=== PATIENT | male | born 1980 | race Caucasian/White ===

== ENCOUNTER 2016-11-03 17:55 | Emergency (ER) | payer OTHER ==
[~2016-11-03] VITALS: Ht 185.4 cm; Wt 143.7 kg
[~2016-11-03 17:55] MED LIST: CARAFATE1 GM PO; NEXIUM40 MG PO; NOHOMEMEDS; PRILOSEC20 MG PO
[2016-11-03 18:48] LABS: ADD MIUA? NO; BILIRUBIN NEGATIVE; BLOOD NEGATIVE; COLOR YELLOW ((YELLOW)); GLUCOSE (STRIP) NEGATIVE; KETONES 5; LEUKOCYTES NEGATIVE; NITRITE NEGATIVE; PROTEIN (STRIP) NEGATIVE; SPECIFIC GRAVITY 1.025 (1.000-1.030); UCUL ADDED? NO; UROBILINOGEN 0.2 MG/DL (0.2-1.0)
[2016-11-03 19:31] LABS: HEMATOCRIT 45.6 % (38.0-50.0); MCH 30.9 PG (29.0-34.0); MCHC 35.7 G/DL (30.0-36.0); MCV 86.4 FL (86-99); MEAN PLAT.VOLUME 9.6 uM^3 (9.0-12.4); PLATELET COUNT 230 K/uL (156-360); RBC DIS.WIDTH-SD 37.9 % (39-53); RED BLOOD COUNT 5.28 M/uL (4.00-5.50); WHITE BLOOD COUNT 8.5 K/uL (4.1-10.2)
[2016-11-03 19:42] LABS: CHLORIDE 106 mEq/L (99-109); POTASSIUM 3.7 mEq/L (3.7-5.4); SODIUM 139 mEq/L (136-147)
[2016-11-03 19:44] LABS: GLUCOSE 95 mg/dL (70-99)
[2016-11-03 19:46] LABS: ANION GAP 11 MEQ/L (2-14)
[2016-11-03 19:48] LABS: GFR ESTIMATE (CALCULATED) > 59 mL/min/
[2016-11-03 19:49] LABS: UREA NITROGEN (BUN) 16 mg/dL (9-23)
[2016-11-03] MEDS ORDERED: MOTRIN600 MG PO (20:43)
[2016-11-03] MEDS ORDERED: CIPRO500 MG PO (20:43)
[2016-11-03 20:59] VITALS: BP 126/88
[2016-11-04 13:21] LABS: CHLAMYDIA TRACHOMATIS NEGATIVE; NEISSERIA GONORRHOEAE NEGATIVE
== END 2016-11-03 21:00 | disposition home or self-care (01) ==
LOC: EME 17:55
PROVIDERS: Physician Assistant
DX: N45.1 Epididymitis (principal); R10.32 Left lower quadrant pain; R11.0 Nausea; K57.30 Diverticulosis of large intestine without perforation or abscess without bleeding
CPT/HCPCS: 74176; 76870; 80048; 81003; 85027; 87491; 87591; 99281; 99284; J0696

== ENCOUNTER 2017-11-02 07:39 | Day surgery (SDC) | payer OTHER ==
[~2017-11-02] VITALS: Ht 185.4 cm; Wt 145.1 kg
[~2017-11-02 07:39] MED LIST changes: +CIPRO500 MG PO; +MOTRIN600 MG PO; +VERAPAMIL HCL120 M2 PO
[2017-11-02] MEDS ORDERED: VERAPAMIL HCL180 MG PO (08:26)
[2017-11-02 08:37] VITALS: BP 151/90
[2017-11-02] MEDS ORDERED: ULTRAM50 MG PO (12:14)
[2017-11-02 13:05] VITALS: BP 179/84
[2017-11-02 14:05] VITALS: BP 137/78
== END 2017-11-02 14:20 | disposition home or self-care (01) ==
LOC: SDC 07:39
PROC: 0JB80ZZ Excision of Abdomen Subcutaneous Tissue and Fascia, Open Approach (ICD-10-PCS; principal; 2017-11-02)
DX: D17.5 Benign lipomatous neoplasm of intra-abdominal organs (principal); I10 Essential (primary) hypertension; K21.9 Gastro-esophageal reflux disease without esophagitis
CPT/HCPCS: 88304; J0131; J0330; J0690; J1100; J1170; J2405; J3010